=== PATIENT | female | born 1995 | race Caucasian/White ===

== ENCOUNTER 2024-03-24 19:19 | Emergency (ER) | payer SELFPAY ==
[~2024-03-24] VITALS: Ht 162.6 cm; Wt 77.1 kg
[2024-03-24] MEDS: KETOROLAC TROMETHAMINE 60 MG/2 ML VIAL IM ONE (20:27)
[2024-03-24] MEDS ORDERED: ULTRAM 50MG50 MG PO (21:39)
[2024-03-24 21:43] VITALS: PULSE 78; RESP 16; TEMP 98.5; O2SAT 100
== END 2024-03-24 21:45 | disposition home or self-care (01) ==
LOC: ER 19:21
DX: M54.2 Cervicalgia (principal); M54.50 Low back pain, unspecified; V43.52XA Car driver injured in collision with other type car in traffic accident, initial encounter; Y92.488 Other paved roadways as the place of occurrence of the external cause
CPT/HCPCS: 72125; 72128; 72131; 81025; 99284; J1885